=== PATIENT | female | born 1960 | race Caucasian/White ===

== ENCOUNTER 2016-10-31 06:28 | Day surgery (SDC) | payer OTHER ==
[~2016-10-31] VITALS: Ht 149.9 cm; Wt 78.2 kg
[~2016-10-31 06:28] MED LIST: ASPI-1093 PO; GLIP5TAB3 PO; INSLAN SQ; LISI-660 PO; METF500T4 PO; METO50 PO; MONT10TA21 PO; SIMV-261 PO
[2016-10-31] MEDS ORDERED: SODIUM CHLORIDE 0.9% 1,000 ML IV ONE (07:00)
[2016-10-31] MEDS ORDERED: MIDAZOLAM HCL 2 MG/2 ML VIAL ONE (07:58)
[2016-10-31] MEDS ORDERED: FentaNYL CITRATE-PF 100 MCG/2 ML VIAL ONE (07:58)
[2016-10-31 08:07] LABS: GLUCOSE,POINT OF CARE 195 MG/DL (70-110)
[2016-10-31] MEDS ORDERED: MethylPREDNISolone SOD SUCC 125 MG/2 ML VIAL IVP ONE (08:45)
[2016-10-31] MEDS ORDERED: MethylPREDNISolone SOD SUCC 125 MG/2 ML VIAL ONE (09:26)
[2016-10-31] MEDS ORDERED: BENZOCAINE 20% 50 MCG/SPRAY 57 GM TP ONE (16:22)
[2016-10-31] MEDS ORDERED: LIDOCAINE HCL 4% 50 ML SOLUTION TP ONE (16:22)
[2016-10-31] MEDS ORDERED: LIDOCAINE HCL 2% 30 ML JELLY TP ONE (16:22)
[2016-10-31] MEDS ORDERED: ALBUTEROL SULFATE 2.5 MG/0.5 ML NEB SOLUTION NEB ONE (16:22)
[2016-10-31] MEDS ORDERED: OXYGEN THERAPY IH SCH (20:00)
== END 2016-10-31 10:10 | disposition home or self-care (01) ==
LOC: SURGERY 06:28
PROVIDERS: ATTEND Internal Medicine Critical Care Medicine
DX: J38.4 Edema of larynx (principal); B37.0 Candidal stomatitis; E11.9 Type 2 diabetes mellitus without complications; Z79.4 Long term (current) use of insulin; Z79.01 Long term (current) use of anticoagulants
CPT/HCPCS: 31623; 31624; 71010; 82962; 87015 ×2; 87070; 87101; 87205; 87220; 88108; 88312; J2250; J2930; J3010

== ENCOUNTER 2024-02-19 06:35 | Day surgery (SDC) | payer OTHER ==
[~2024-02-19] VITALS: Ht 152.4 cm; Wt 75.0 kg
[~2024-02-19 06:35] MED LIST changes: -ASPI-1093 PO; +ASPI-1444 PO; -LISI-660 PO; +LISI-892 PO; +METF-1211 PO; -METF500T4 PO; +MONT-35 PO; -MONT10TA21 PO
[2024-02-19] MEDS ORDERED: OMEP10CA38 PO (07:14)
[2024-02-19] MEDS ORDERED: ATOR40TA28 PO (07:14)
[2024-02-19] MEDS ORDERED: SODIUM CHLORIDE 0.9% 1,000 ML ONE (07:15)
[2024-02-19] MEDS: SODIUM CHLORIDE 0.9% 1,000 ML IV ONE (07:48)
[2024-02-19 08:01] LABS: GLUCOMETER DEV NAME(LOC) SDS.; GLUCOSE,POINT OF CARE 252 MG/DL (70-110)
[2024-02-19] MEDS ORDERED: FentaNYL CITRATE PF 100 MCG/2 ML VIAL ONE (08:21)
[2024-02-19] MEDS ORDERED: MIDAZOLAM HCL 2 MG/2 ML VIAL ONE (08:21)
[2024-02-19 09:38] VITALS: PULSE 69; RESP 18; O2SAT 97
[2024-02-19] MEDS: MIDAZOLAM HCL 2 MG/2 ML VIAL IVP ONE (09:41)
[2024-02-19] MEDS: FentaNYL CITRATE PF 100 MCG/2 ML VIAL IVP ONE (09:41)
[2024-02-19] MEDS ORDERED: MethylPREDNISolone SOD SUCC 125 MG/2 ML VIAL ONE (10:09)
[2024-02-19] MEDS: MethylPREDNISolone SOD SUCC 125 MG/2 ML VIAL IVP ONE (10:19)
[2024-02-19] MEDS ORDERED: ALBUTEROL SULFATE 2.5 MG/0.5 ML NEB SOLUTION NEB ONE (12:00)
[2024-02-19] MEDS ORDERED: LIDOCAINE 4% 50 ML SOLUTION ONE (12:00)
[2024-02-19] MEDS ORDERED: BENZOCAINE 20% 50 MCG/SPRAY 57 GM ONE (12:00)
[2024-02-19] MEDS ORDERED: LIDOCAINE 2% 11 ML JELLY ONE (12:00)
== END 2024-02-19 11:15 | disposition home or self-care (01) ==
LOC: SURGERY 06:35
PROVIDERS: ATTEND Internal Medicine Critical Care Medicine
DX: R05.3 Chronic cough (principal); R06.2 Wheezing; R49.0 Dysphonia; R04.2 Hemoptysis; R91.8 Other nonspecific abnormal finding of lung field; J47.9 Bronchiectasis, uncomplicated; J38.4 Edema of larynx; B37.0 Candidal stomatitis; E11.9 Type 2 diabetes mellitus without complications; E78.00 Pure hypercholesterolemia, unspecified; Z79.82 Long term (current) use of aspirin; Z79.899 Other long term (current) drug therapy; Z98.818 Other dental procedure status; Z98.890 Other specified postprocedural states
CPT/HCPCS: 31623; 31624; 82962; 87206; 87101; 87220; 87070; 88108; 71045; 87015; J3010; J2250; J2919; J7030; J7613; Z7610

== ENCOUNTER 2024-04-29 06:28 | Day surgery (SDC) | payer OTHER ==
[~2024-04-29] VITALS: Ht 152.4 cm; Wt 75.9 kg
[~2024-04-29 06:28] MED LIST changes: +ATOR40TA28 PO; -GLIP5TAB3 PO; -INSLAN SQ; -LISI-892 PO; +OMEP10CA38 PO; -SIMV-261 PO
[2024-04-29] MEDS ORDERED: LIDOCAINE 2% 11 ML JELLY TP ONE (06:29)
[2024-04-29] MEDS ORDERED: BENZOCAINE 20% 50 MCG/SPRAY 57 GM TP ONE (06:29)
[2024-04-29] MEDS ORDERED: LIDOCAINE 4% 50 ML SOLUTION TP ONE (06:29)
[2024-04-29] MEDS ORDERED: SODIUM CHLORIDE 0.9% 1,000 ML ONE (06:42)
[2024-04-29] MEDS: SODIUM CHLORIDE 0.9% 1,000 ML IV ONE (07:34)
[2024-04-29] MEDS ORDERED: INSU100V SQ (07:44)
[2024-04-29] MEDS ORDERED: EMPA10TA3 PO (07:44)
[2024-04-29 07:51] LABS: GLUCOMETER DEV NAME(LOC) SDS.; GLUCOSE,POINT OF CARE 197 MG/DL (70-110)
[2024-04-29] MEDS ORDERED: FentaNYL CITRATE PF 100 MCG/2 ML VIAL ONE (09:00)
[2024-04-29] MEDS ORDERED: MIDAZOLAM HCL 2 MG/2 ML VIAL ONE (09:01)
[2024-04-29 09:40] VITALS: PULSE 75; RESP 18; O2SAT 100
[2024-04-29] MEDS ORDERED: MethylPREDNISolone SOD SUCC 125 MG/2 ML VIAL ONE (09:43)
[2024-04-29] MEDS: MethylPREDNISolone SOD SUCC 125 MG/2 ML VIAL IVP ONE (10:10)
== END 2024-04-29 12:40 | disposition home or self-care (01) ==
LOC: SURGERY 06:28
PROVIDERS: ATTEND Internal Medicine Critical Care Medicine
DX: J38.4 Edema of larynx (principal); B37.0 Candidal stomatitis; I10 Essential (primary) hypertension; E78.00 Pure hypercholesterolemia, unspecified; E11.9 Type 2 diabetes mellitus without complications
CPT/HCPCS: 31623; 99152; 82962; 87206; 87101; 87220; 87070; 88108; 31624; 71045; 87015; J3010; J2250; J2919; J7030; Z7610